=== PATIENT | male | born 1950 | race Caucasian/White ===

== ENCOUNTER → 2019-05-29 | Day surgery (SDC) | payer OTHER, MEDICARE ==
--- NOTE | 2019-05-29 11:02 | RAD REPORT ---
EXAM DESCRIPTION: US - Biopsy Lymph Node - 05/29/2019 10:11 am CLINICAL HISTORY: R22.1 COMPARISON: No comparisons FINDINGS: Preoperative diagnosis: Large mass left lateral neck. Post operative diagnosis: Same. Conscious Sedation: None Fluoroscopy time: None Contrast used: None Estimated blood loss: Minimal Specimens:3 x 18 gauge core biopsy specimens The left neck was prepped and draped in the usual sterile fashion. 1% lidocaine was infiltrated into the subcutaneous tissues for local anesthesia. Real time ultrasound scanning of the left neck demonst rated large mass. Under ultrasound guidance, using a 18-gauge, 6 cm long, 2 cm throw core biopsy gun, 3 specimens were obtained of this lesion and sent to pathology for evaluation. There were no complic ations. IMPRESSION: Successful ultrasound-guided core biopsy of left neck mass.
== END | disposition home or self-care (01) ==
LOC: FNA 08:53
PROVIDERS: ATTEND Surgery
DX: C79.89 Secondary malignant neoplasm of other specified sites (principal)
CPT/HCPCS: 38505; 76942; 88305

== ENCOUNTER 2020-06-12 07:36 | Day surgery (SDC) | payer OTHER, MEDICARE ==
--- NOTE | 2020-06-11 10:47 | RAD REPORT ---
EXAM DESCRIPTION: RAD - Chest Pa And Lat (2 Views) - 06/11/2020 10:41 am CLINICAL HISTORY: pre op Chest pain. COMPARISON: No comparisons FINDINGS: The lungs are mildly emphysematous but clear. The heart is normal in size. No displaced fr actures. IMPRESSION: Mild COPD.
[2020-06-11 11:25] LABS: Absolute Lymphocytes (CBC) 0.4 K/uL (0.7-4.9); Basophils % 0.4 % (0-1.3); Hematocrit 39.2 % (39.6-49.0); MPV 7.2 fL (7.6-11.3); RBC Red Blood Cell Count 4.19 M/uL (4.33-5.43)
[2020-06-11 11:36] LABS: BUN Blood Urea Nitrogen 12 mg/dL (7-18); Bicarbonate 30 mmol/L (21-32); Glucose Level 102 mg/dL (74-106); Potassium 4.1 mmol/L (3.5-5.1); Sodium Level 128 mmol/L (136-145)
--- NOTE | 2020-06-11 12:03 | EKG ---
Test Date: 2020-06-11 Test Time: 10:10:54 Retail Specialist: HAILEY MEASUREMENT RESULTS: Intervals: Rate: 76 WV: 158 QRSD: 92 QT: 404 QTc: 454 [place]: P: 88 WV: 158 QRS: 83 T: 140 INTERPRETIVE STATEMENTS: Sinus rhythm with premature atrial complexes Nonspecific ST and T wave abnormality Abnormal ECG No previous ECG available for comparison Electronically Signed On 06-11-20 12:02:58 SUPERVISOR HOUSECLEANER by Jordy Méndez
--- OUTSIDE RECORDS SUMMARY | 2020-06-12 07:40 | XMS REPORT | Clinical Summary ---
:1950 Author Organization [facility] Address [address] [place] [address] Care Team Providers Name Role Phone Unavailable Primary Care Provider Unavailable Allergies Not on File Medications Not on file Active Problems Not on file Encounters Date Type Specialty Care Team Description 04/26/2020 Clinical Support Pulmonology Jlius Anna MD Ne ed for prophylactic vaccination and inoculation aga inst influenza (Prim fernandez Dx) 04/26/2020 Travel after 06/12/2019 Immunizations Name Administration Dates Next Due FLUZONE HIGH-DOSE PF 04/26/2020 Social History Tobacco Use Types Packs/Day Years Used Date Never Assessed Sex Assigned at Date Recorded Not on file Last Filed Vital Signs Not on file Plan of Treatment Health Maintenance Due Date Last Done Comments COLONOSCOPY SCREENING 1999 SHINGLES VACCINES (#1) 1999 65+ PNEUMOCOCCAL VACCINE (1 of 1 - PPSV23) 2014 INFLUENZA VACCINE Completed 04/26/2020 Results Not on fileafter 06/12/2019 Insurance Payer Benefit Plan / Subscriber ID Effective Dates Phone Addre ss Type Group MEDICARE MEDICARE PART A [id number] 2014-Present [place], [place] Medicare AND B AARP AARP SUPPLEMENT [id number] 2019-Present Commercial Advance Directives For more information, please contact: [phone] Type Date Recorded Patient Roller Leveler Operator Explanati on Advance Directives, Living Will and Medical Power of Service Center Coordinator
--- OUTSIDE RECORDS SUMMARY | 2020-06-12 07:41 | XMS REPORT | Continuity of Care Document ---
:1950 Author Organization [facility] t Address [address] [place] [address] Dr. Salcedo[address] [place] [id number] Care Team Providers Name Role Phone Arash Medellin MD Primary Care Physician Reuben Anna MD Attending Clinician Anant REDDY Attending Clinician Rehana ANDERSON Attending Clinician Herrera GERBER, M Attending Clinician Unavailable Mushtaq Witt MD Attending Clinician Arash Medellin MD Attending Clinician Godfrey GERBER G Attending Clinician Unavailable Trace GERBER, E Attending Clinician Unavailable Linette ANDERSON Attending Clinician Unavailable Salma REDDY Attending Clinician Helio ANDERSON Attending Clinician Derian KAY Attending Clinician Bill Burleson DDS Attending Clinician Bi ENNIS Attending Clinician Mai GERBER, A Attending Clinician Unavailable Barbara Kyle MD Attending Clinician Payers Payer Name Policy Type Policy Effective Date Expiration Date Sour ce Number MEDICAREMEDICARE PART [id number] 2014 Travis Lloyd AND 00:00:00 Buddhist [id number] 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 Family History Family Member Diagnosis Comments Start Date Stop Date Source Natural father Lung cancer MD Kirk on Natural mother Colon cancer MD Diaz son Social History Social Habit Start Date Stop Date Quantity Comments Source Sex Assigned At M MD Kirk on Cigarettes smoked 2020-04-10 2020-04-10 MD Mihir petty current (pack per 00:00:00 00:00:00 day) - Reported Cigarette pack-years 2020-04-10 2020-04-10 MD Lloyd nderson 00:00:00 00:00:00 Tobacco use and 2020-04-10 2020-04-10 Never used MD Kirk on exposure 00:00:00 00:00:00 Alcohol intake 2020-04-10 2020-04-10 Ex-drinker MD Che moseley 00:00:00 00:00:00 (finding) History of tobacco 1966 2014 Current smoker MD Chan use 00:00:00 00:00:00 Smoking Status Start Date Stop Date Source Former smoker 2020-04-10 00:00:00 2020-04-10 00:00:00 MD Joe adam Medications Ordered Filled Start Stop Current Ordering Indication Dosage Frequency Signature Comments Components Source Medication Medication Date Date Medication? Clinician (SIG) Name Name peg Yes Colonoscopy Use as 3350-electr 09-26 planned directed A nderso olytes 00:00: by n (Golytely) 00 ordering [id number] provider. .74 g solution amLODIPine Yes 10mg Take 10 mg M D (NORVASC) 2-12 by mouth Reagan o 10 mg 15:13: daily. n tablet 12 atorvastati Yes 10mg Take 10 mg MD n (LIPITOR) 2-12 by mouth Mihir rso 20 mg 15:13: daily. n tablet 12 lisinopril Yes 2{tbl} Take 2 MD 20 mg tab 2-12 tablets by Mihir rso 20 mg, 15:13: mouth n hydroCHLORO 12 daily. thiazide 12.5 mg tab 12.5 mg aspirin 81 81mg Chew 81 mg MD mg chewable 2-12 02-12 daily. Joe so tablet 15:13: 00:00 n 12 :00 Immunizations Ordered Immunization Filled Immunization Date Status Commen ts Source Name Name FLUZONE HIGH-DOSE PF 2020-04-26 Completed [place] 00:00:00 Buddhist Vital Signs Vital Name Observation Time Observation Value Comments Source Systolic blood pressure 2020-04-10 18:49:47 136 mm[Hg] MD Chan Diastolic blood pressure 2020-04-10 18:49:47 74 mm[Hg] MD Chan Heart rate 2020-04-10 18:49:47 83 /min MD Joe adam Body temperature 2020-04-10 18:49:47 36.61 Cheryl MD Prema gong Respiratory rate 2020-04-10 18:49:47 16 /min MD Prema gong Oxygen saturation in 2020-04-10 18:49:47 96 /min MD Chan Arterial blood by Pulse oximetry Body weight 2020-04-10 18:00:00 64.4 kg MD Joe adam BMI 2020-04-10 18:00:00 19.66 kg/m2 MD Joe adam Body height 2019-12-27 15:12:00 181 cm MD Joe adam Procedures Procedure Date / Time Performed Performing Clinician Sourc e CT CHEST W CONTRAST 2020-04-10 17:21:55 Ambika Ny MD Joe son CT SOFT TISSUE NECK W 2020-04-10 17:21:55 Ambika Ny MD And erson CONTRAST POC CREATININE 2020-04-10 16:26:00 Ambika Ny MD PETCT SUBSEQUENT TREATMENT 2019-12-27 17:29:00 Ambika Ny STRATEGY POC GLUCOSE SCREEN 2019-12-27 15:26:00 Provider, Unknown MD Ash rskadi OUTSIDE REFERRAL 2019-10-13 00:00:00 System, Provider Not In MD Chan HP CANCER MUTATION SCAN 2019-10-12 21:49:00 Mary Grace Kimball 49 GENES REPORT PATHOLOGY REQUISITION 2019-10-10 00:00:00 Mary Grace Kimball MD And erson ARCHIVED MATERIAL 2019-10-10 00:00:00 Mary Grace Kimball MD Anderso n RETRIEVAL CT SOFT TISSUE NECK W 2019-09-04 19:17:39 Phuong Marsh MD And erson CONTRAST CT CHEST W CONTRAST 2019-09-04 19:17:39 Zeyad Fish MD Joe son POC CREATININE 2019-09-04 18:21:00 Phuong Marsh MD BLOOD UREA NITROGEN 2019-09-04 17:49:00 Phuong Marsh MD Joebanner SERUM CREATININE 2019-09-04 17:49:00 Phuong Marsh MD SERUM CREATININE 2019-09-04 17:49:00 Phuong Marsh MD .GLOMERULAR FILTRATION 2019-09-04 17:49:00 Phuong Marsh MD An derson RATE OSI MRI HEAD 2019-06-19 17:36:03 Beryl Barroso MD OSI PET CT SKULL TO MID 2019-06-15 17:35:50 Burton Barroso MD THIGH Suki Plan of Care Planned Activity Planned Date Details Comments Source Future Scheduled 2014 65+ PNEUMOCOCCAL [place] Buddhist Test 00:00:00 VACCINE (1 of 1 - PPSV23) [code = 65+ PNEUMOCOCCAL VACCINE (1 of 1 - PPSV23)] Future Scheduled 1999 COLONOSCOPY SCREENING ileana Buddhist Test 00:00:00 [code = COLONOSCOPY SCREENING] Future Scheduled 1999 SHINGLES VACCINES (#1) H wilma Buddhist Test 00:00:00 [code = SHINGLES VACCINES (#1)] Encounters Start End Encounter Admission Attending Care Care Encounter Source Date/Time Date/Time Type Type Clinicians Facility Department ID 2020-04-26 2020-04-26 Outpatient [facility] [id number] [address] [place] 00:00:00 00:00:[address] Results Test Description Test Time Test Comments Results Result [facility] e Comments CT Soft Tissue 2020-04-10 Stable previously MD Dustin Neck with 18:58:51 treated left lower Contrast neck/supraclavicular mercedes mass when compared to the prior PET/CT, 12/27/2019. It has decreased in size relative the prior CT soft tissue neck, 09/04/2019. No new mercedes masses within the neck or supraclavicular fossa. 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 It appears to be stable in size relative to the prior PET/CT, 12/27/2019. It measures approximately 4.3 x 3.2 cm (series 7, image 73). The lesion is decreased in size relative to the prior CT neck, 09/04/2019 at which time it measured 6.3 cm in greatest dimension. There is again note of nonspecific subcentimeter nodules within the thyroid gland bilaterally. There are no well-defined masses within the parotid or submandibular glands. There is again note of atherosclerotic calcification at the level of the carotid bifurcations and proximal internal carotid arteries.IMPRESSION: Stable previously treated left lower neck/supraclavicular mercedes mass when compared to the prior PET/CT, 12/27/2019. It has decreased in size relative the prior CT soft tissue neck, 09/04/2019.No new mercedes masses within the neck or supraclavicular fossa. CT Chest with 2020-04-10 1. There is little M D Dustin Contrast 18:03:05 or no further change in the lower left cervical adenopathy since November. 2. No convincing intrathoracic metastasis. There are a couple of new low-attenuation nodules in the right lung, probably more likely infectious or inflammatory than neoplastic. These can be followed on any subsequent exams. Interface, Radiology Results In - 04/10/2020 1:05 PM CDTFULL RESULT:Examination: CT CHEST W CONTRAST, 04/10/2020 12:21 PMClinical History: Mucoepidermoid carcinoma of salivary glandIndication: Restaging - Treatment completion, L supraclav mucoep of unknown primary s/p chemoRT completed 08/2019. on surveillanceComparis on: PET/CT 12/27/2019Technique: CT of the chest was performed with intravenous contrast.Findings: There is residual adenopathy in the lower left neck that is similar to the November examination but clearly improved from September. Cardiac chamber sizes are normal. Severe multivessel coronary calcifications are present. There is no mediastinal adenopathy. There is elevation of the left hemidiaphragm. Scarring at the lung apices is possibly increased over the last 2 exams. A few tiny nodules in both lungs are unchanged less than 3 mm. There are couple of 3 or 4 mm low-attenuation nodules in the right upper lobe image 51 and right lower lobe image 62 that are not definitely seen on the prior examinations. No larger or more suspicious pulmonary nodules. No pleural effusion. Calcified granulomas in the spleen. The remainder of the visualized upper abdomen is unremarkable. There is a lipoma along the anterior right hemidiaphragm or anterior abdominal wall musculature.IMPRESSI ON:1. There is little or no further change in the lower left cervical adenopathy since November.2. No convincing intrathoracic metastasis. There are a couple of new low-attenuation nodules in the right lung, probably more likely infectious or inflammatory than neoplastic. These can be followed on any subsequent exams. POC Creatinine 2020-04-10 16:30:42 Test Item Value Reference Range Interpretation Comme nts POC Crea (test code = 0.7 mg/dL 0.6-1.3 Medica tions, especially 08881-9) hydroxyurea or supplements, such as ascorbate, c an interfere with test results ca using a falsely and significant lyhigher result than expected. If a problem is suspected with a patient's result, a sampl e should be sent to the laborato for confirmatory te sting. POC eGFR-AA (test 111 >=60 mL/min/1.73 m2 Nor mal eGFR >= 60 mL/min/1.73 m2 code = 09653-0) The eGFR is calculated using the CKD-EPI equatio n. The eGFR declines with a ge. eGFR <60 mL/min/1.73 m2 is considered as "decreased" Thi s equation should only be used fo r patients 18 and older. Cherellein g to the National Kidney Foundati on's Kidney Disease Outcome Quality Initiative (KDO QI) classification and 2012 Kidney Disease Improvi ng Global Outcomes (KDIGO ) Clinical Practice Guidel ine, the stage of CKD should be c ategorized based on estimated GF R. Stage Description GFR mL/min/1.73 m21 Kidney damage w ith normal or high GFR >= 902 Kidney damage with mild decre ase in GFR 60-893a Mild to moderate decrease in GFR 45-593b Moderate to sev ere decrease in GFR 30-444 Severe decrease in GFR 15-29 5 Kidney failure <15 (or dial ysis) POC eGFR-LAMBERT (test 96 >=60 mL/min/1.73 m2 No rmal eGFR >= 60 mL/min/1.73 m2 code = 85596-3) The eGFR is calculated using the CKD-EPI equatio n. The eGFR declines with a ge. eGFR <60 mL/min/1.73 m2 is considered as "decreased" Thi s equation should only be used fo r patients 18 and older. Cherellein g to the National Kidney Foundati on's Kidney Disease Outcome Quality Initiative (KDO QI) classification and 2012 Kidney Disease Improvi ng Global Outcomes (KDIGO ) Clinical Practice Guidel ine, the stage of CKD should be c ategorized based on estimated GF R. Stage Description GFR mL/min/1.73 m21 Kidney damage w ith normal or high GFR >= 902 Kidney damage with mild decre ase in GFR 60-893a Mild to moderate decrease in GFR 45-593b Moderate to sev ere decrease in GFR 30-444 Severe decrease in GFR 15-29 5 Kidney failure <15 (or dial ysis) POC Clean Dev (test Yes code = 6672) [facility] Subsequent Treatment [id number] 18:55:181. Left supraclavicular mass continues to decrease in size compared to the most recent CT scan from09/04/2019, and with current metabolic activity similar to background likely representing treated disease.2. No evidence of metabolically active malignancy. 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 To allow for distribution and uptake of radiotracer, the patient was asked to rest quietly for approximately 60-90 minutes. PET/CT imaging was performed from the skull base to proximal thighs with dedicated imaging of the head orneck. Serum blood glucose at the time of the injection was 111 mg/dL. CT scanning was done for attenuation correction, image registration, and diagnosis with scan parameters optimized to minimize radiation exposure to the patient. SUV measurements are reported as maximum SUV based on body weight unless otherwise specified.Findings: Head and Neck: There is physiologic FDG uptake in the brain with mildasymmetry in the base likely due to patient positioning. Sinuses are well aerated.Continued improvement in the left supraclavicular mass currently measuring approximately 2.9 x 4.4 cm, with mild diffuse FDG uptake similar to background with SUV 2.8, image 95 (on 09/04/2019 CT this measured 5.5 x 6.3 cm, SE 8, IM 81; and on 06/15/2019 PET/CT this measured 6.5 x 9.1 cm, SUV 15.6).No other suspicious appearing or FDG avid nodes in the head or neck. There is physiologic activity in the strap muscles of the neck. Non-FDG avid hypodensity in the right thyroid lobe. Bilateral carotid calcifications are present.Chest: No suspicious appearing or FDG avid nodules or masses in the lungs.No pathologically enlarged or FDG avid lymph nodes in the chest. Calcified lymph nodes in the right hilum likely representprior granulomatous process. Calcifications of the thoracic aorta and coronary arteries consistent with atherosclerotic disease.Abdomen and Pelvis: The unenhanced liver, spleen, pancreas, and adrenal glands demonstrate no focal FDG abnormality. Gallbladder is visualized. There is physiologic FDG excretion from the kidneys and urinary bladder. No appreciable or FDG avid lymphadenopathy in the abdomen or pelvis.Dense calcifications of the abdominal aorta and its major branches consistent with atherosclerotic disease.Musculoskeletal: No suspicious or FDG avid osseous lesions. Degenerative changes are noted in the spine, hips, and shoulders. Hypermetabolic activity along the left hip is likely associated with physiologic muscle activity.IMPRESSION:1. Left supraclavicular mass continues to decrease in size compared to the most recent CT scan from 09/04/2019, and with current metabolic activity similarto background likely representing treated disease.2. No evidence of metabolically active malignancy.[facility] Glucose [id number] 15:30:25 Test Item Value Reference Range Interpretation Comments POC Glucose (test code = 111 mg/dL 70-99 [facility] blood 44092-6) samples, e.g. obtained by fingerstick, ma y have inaccurate results in yue ents with decreased peripheral bloo d flow. PO Sample Type (test Venous code = 9554) Lab Interpretation (test Abnormal code = 28418-4) MD ChanGlomerular Filtration [id number] 18:33:33 Test Item Value Reference Range Interpretation Comments eGFR-AA (test 104 >=60 mL/min/1.73 sq. Normal eGFR: >= 60 code = 8062) m mL/min/1.73 m2N ote: The eGFR is calcula carmen using the CKD-EPI equ ation. The eGFR declines w ith age. eGFR <60 mL/min /1.73 m2 is considered as " decreased". This equation s hould only be used for pat ients 18 and older. Acco rding to the National Ki dney Foundation's dney Disease Outcome Quality Initiative (KDO QI) classification and 2012 Kidney Disease Improving Global Outcomes (KDIGO) Clinical Practi ce Guideline, the stage of CKD should be c ategorized based on estima carmen GFR. Stage Descripti on GFR mL/min/1.73 m21 Normal or high GFR >=902 Mildly de creased GFR 60-893a Mildly to moder ately decreased GFR 45-593b Moderately to s everely decreased GFR 30-444 Severely decrea sed GFR 15-295 Kidney failure <15 eGFR-LAMBERT (test 90 >=60 mL/min/1.73 sq. Rachel l eGFR: >= 60 code = 8063) m mL/min/1.73 m2N ote: The eGFR is calcula carmen using the CKD-EPI equ ation. The eGFR declines w ith age. eGFR <60 mL/min /1.73 m2 is considered as " decreased". This equation s hould only be used for pat ients 18 and older. Acco rding to the National Ki dney Foundation's dney Disease Outcome Quality Initiative (KDO QI) classification and 2012 Kidney Disease Improving Global Outcomes (KDIGO) Clinical Practi ce Guideline, the stage of CKD should be c ategorized based on estima carmen GFR. Stage Descripti on GFR mL/min/1.73 m21 Normal or high GFR >=902 Mildly de creased GFR 60-893a Mildly to moder ately decreased GFR 45-593b Moderately to s everely decreased GFR 30-444 Severely decrea sed GFR 15-295 Kidney failure <15 MD Chan.Serum [id number] 18:33:32 Test Item Value Reference Range Interpretation Comments Creatinine (test code = 5399) 0.82 mg/dL 0.67-1.17 MD [id number] 18:33:31 Test Item Value Reference Range Interpretation Comments BUN (test code = 5055) 12 mg/dL 6-23 MD Alex MRI [id number] 17:36:11For comparison only. No interpretation requested.MD Alex PET CT Skull to Mid [id number] 17:36:00For comparison only. No interpretation requested.MD Chan
[2020-06-12] MEDS ORDERED: Ringers Lactate 1,000 ML IV ONE (08:12)
[2020-06-12] MEDS ORDERED: CEFAZOLIN/SWI 1gm 1 GM/10 ML SYR ONE (08:13)
[2020-06-12] MEDS ORDERED: FENTANYL CITR 100 MCG/2 ML ONE (09:02)
[2020-06-12] MEDS ORDERED: propofoL 200 MG/20 ML VIAL IV ONE (09:02)
[2020-06-12] MEDS ORDERED: LIDOCAINE 1% MPF 5 ML VIAL ONE (09:02)
[2020-06-12] MEDS ORDERED: MIDAZOLAM HCL 2 MG/2 ML INJ ONE (09:02)
[2020-06-12] MEDS ORDERED: dexAMETHasone 4 MG/ML VIAL ONE (09:27)
[2020-06-12] MEDS ORDERED: ONDANSETRON 4 MG/2 ML VIAL ONE (09:27)
[2020-06-12] MEDS ORDERED: KETOROLAC 30 MG/ML INJ ONE (09:27)
[2020-06-12] MEDS ORDERED: EPHEDRINE SULF 50 MG/ML VIAL ONE (09:28)
[2020-06-12] MEDS ORDERED: NS 0.9% VIAL 10 ML ONE (09:29)
--- NOTE | 2020-06-12 09:58 | P.BOP ---
Preoperative diagnosis: left inguinal hernia tender incarcerated Postoperative diagnosis: same Primary procedure: open repair of incarcerated left inguinal hernia with mesh Estimated blood loss: <10cc Specimen: hernia sac Findings: large bowel on hernia viable Anesthesia: General Complications: None Drain(s): Other Transferred to: Recovery Room Condition: Good
[2020-06-12] MEDS ORDERED: HYDROCODONE/APAP 5/325 MG TAB ONE (11:22)
[2020-06-12 11:24] VITALS: TEMP 97.5
[2020-06-12 11:59] VITALS: BP 120/69; O2SAT 99
--- NOTE | 2020-06-12 18:07 | EKG ---
Test Date: 2020-06-11 Test Time: 10:11:35 Associate Civil Engineer: HAILEY MEASUREMENT RESULTS: Intervals: Rate: 69 GA: 158 QRSD: 98 QT: 392 QTc: 420 [place]: P: 83 GA: 158 QRS: 82 T: 103 INTERPRETIVE STATEMENTS: Normal sinus rhythm Nonspecific ST abnormality Abnormal ECG Compared to ECG 06/11/2020 10:10:54 Atrial premature complex(es) no longer present ST (T wave) deviation still present Electronically Signed On 06-12-20 18:02:52 UTILITY OPERATOR YARN by Jordy Méndez
--- NOTE | 2020-06-18 13:00 | OP ---
Date of Procedure: 06/12/2020 Surgeon: Hernesto Guardado MD Preoperative Diagnosis: Left inguinal hernia, tender, incarcerated. Postoperative Diagnosis: Left inguinal hernia, tender, incarcerated. Procedure: Open repair of incarcerated left inguinal hernia with mesh. Estimated Blood Loss: Less than 10 mL. Specimen: Hernia sac. Findings: Large bowel and hernia. Inspecting, it looks viable and was reduced. Anesthesia: General plus local. Mesh is a plug and sheath mesh. Indications For Procedure: This is the case of a male, who comes to us with a tender and incarcerate d left inguinal hernia. The benefits, alternatives, and risks of repair fully explained, which inclu de, but not limited to infection, bleeding, damage to adjacent structures, anesthesia complication, r ecurrence, chronic pain, chronic numbness, GA, and even . He also understands this may not reli papo symptoms. He might need more than one surgical intervention. He also understands most likely we put a mesh in that area. Pros and cons of mesh placement were discussed with the patient. After an swering all of his questions to his satisfaction, then he did consent for the use of mesh. Procedure In Detail: The patient was brought to the operating room and placed in supine position. A nesthesia was done without complications. A time-out was called. Left inguinal area was prepped and draped in usual sterile fashion followed by incision in that area after injecting local anesthetic. Nicole fascia was opened finding external oblique aponeurosis in which the fibers were opened in dir ection of the fibers to connect to the superficial inguinal ring. The ilioinguinal nerve and iliohyp ogastric nerve were protected behind the external oblique aponeurosis. The spermatic cord was encirc led with a Poyen. After that, I proceeded to identify the hernia sac, dissected free from the sper matic cord, making sure we keep in viable including the vas deferens. Once the hernia sac was opened , we noticed some large bowel present that was inspected. Some adhesions to the hernia sac were rele ased and the large bowel was reduced back into the abdominal cavity after found to be fully viable. The hernia sac was then twisted and under careful visualization, we proceeded to put a Prolene to sut ure ligate the sac without injuring the bowel. The hernia sac was sent to the pathologist. Mesh plu g was placed in the deep inguinal ring, secured in place with VersaTack staple. Another mesh was rachel niesha in the floor of the canal securing that to the symphysis pubis and then shelving edge of the ingu inal ligament and transversalis fascia and the tail looped around the spermatic cord without strangul ation. After that, I brought the ilioinguinal nerve and iliohypogastric nerve back into the inguinal canal, reconstructed the superficial inguinal ring, and closed the external oblique aponeurosis ida ng sure not to include the nerve. The area was irrigated. Subcutaneous tissue was closed with 3-0 c hromic and skin was approximated. Sponge count and instrument counts correct. The patient tolerated the procedure well. The patient was sent to recovery room in stable condition. BRO/CHANNING Voice ID: [id number] Report ID: [id number]
--- NOTE | 2020-06-18 13:00 | OP ---
Surgeon: Hernesto Guardado MD Diagnosis: Tender, incarcerated left inguinal hernia. Procedure: Open repair of tender and incarcerated left inguinal hernia with mesh. Disposition: Home. Activity: As tolerated, no heavy lifting. Plan: Follow up in my office in 1 week. Call for appointment at [phone]. Keep area dry for 48 batool rs, then may shower. Medications: See orders. BRO/CHANNING Voice ID: [id number] Report ID: [id number]
== END 2020-06-12 12:05 | disposition home or self-care (01) ==
LOC: OR 07:36
PROVIDERS: ATTEND Surgery
PROC: 0YU60JZ Supplement Left Inguinal Region with Synthetic Substitute, Open Approach (ICD-10-PCS; principal; 2020-06-12 08:45)
DX: K40.30 Unilateral inguinal hernia, with obstruction, without gangrene, not specified as recurrent (principal); Z20.828 Contact with and (suspected) exposure to other viral communicable diseases; I10 Essential (primary) hypertension; E78.00 Pure hypercholesterolemia, unspecified
CPT/HCPCS: 93005 ×2; 85025; 80048; 36415; 88302; 71046; 49507; U0002; J2704; J1100; J2250; J3010; J0690; J7120; J2405